=== PATIENT | female | born 1970 | race Caucasian/White ===

== ENCOUNTER 2019-02-24 16:59 | Emergency (ER) | payer OTHER, SELFPAY ==
[2019-02-24 17:18] LABS: Apearance,Urine Clear (Clear); Bilirubin,Urine Negative (Negative); Blood, Urine Negative (Negative); Color,Urine Orange (Yellow); Glucose,Urine (UA) 100 (Negative); Ketones,Urine Negative (Negative); Protein,Urine Trace (Negative); Specific Gravity, Urine 1.005 (1.005-1.030); UTC Leukocyte Esterase,Urine Negative (Negative); Urobilinogen,Urine 1 EU/dl (0.2)
[2019-02-24 17:19] LABS: UTC Nitrate,Urine Positive (Negative)
[2019-02-24 17:40] VITALS: BP 195/65; PULSE 65; RESP 18; TEMP 36.8; O2SAT 100; BMI 33.5
--- NOTE | 2019-02-24 18:19 | HMH.EDUTC ---
[facility] – [place] Disposition Clinical Impression: UTI (urinary tract infection) Qualifiers: Urinary tract infection type: site unspecified Hematuria presence: without hematuria Qualified Code(s): N39.0 - Urinary tract infection, site not specified Disposition: Home, Self-Care Condition on Discharge: Good Instructions: Urinary Tract Infection, DI for Urinary Tract Infection (UTI), Nitrofurantoin Additional Instructions: *Increase fluids. Water not Soda or Tea *Start antibiotic immediately and be sure to take as ordered for the FULL length of time although you should start to see improvement over the next 48 hours *Be SURE to follow up anytime for new or worsening symptoms with your family doctor. AND in 48 hours for urine culture results with your family doctor, if you do not have a doctor then you may call back to the [facility] for urine culture results and further treatment. We do recommend that you choose and establish care with a Primary Care Physician. AND follow up with them in 10-14 days to repeat UA to ensure infection is resolved and blood no longer present *Be sure to let your PCP know that we sent urine cultures from the [facility] so they can follow up to ensure that you area the on the correct antibiotic Call your doctor office and make appointment for 48 hours (2 days from today) to follow up and get the results of your urine culture and further treatment Return if needed Straight to ER if any life threatening symptoms Prescriptions: Nitrofurantoin Monohyd/M-Cryst [Macrobid 100 mg Capsule] 100 mg PO BID 7 Days #14 cap Referrals: Betsy Carmona [Primary Care Provider] - As needed (Follow up in 48 hours for urine culture results) Time of Disposition: 18:30 Medical Decision Making - Byron Inquiry Pt receiving controlled substance: No Byron was queried for this patient: No Vital Signs: 02/24/19 17:40 02/24/19 18:48 Temperature 98.2 F Temperature Source Oral Pulse Rate [Right Apical] 65 Respiratory Rate 18 Blood Pressure [Right Arm] 195/65 H 120/84 Blood Pressure Mean [Right Arm] 108 96 Blood Pressure Source [Right Arm] Automatic Cuff Blood Pressure Position [Right Arm] Sitting 02 Sat by Pulse Oximetry 100 - Lab Data Lab Results 02/24/19 17:12: Urine Color [place], Urine Appearance Clear, Urine pH 5.0, Ur Specific [place] 1.005, Urine Protein Trace, Urine Glucose (UA) 100, Urine Ketones Negative, Urine Blood Negative, Urine Nitrate Positive A, Urine Bilirubin Negative, Urine Urobilinogen 1, Ur Leukocyte Esterase Negative Orders (Tests/Meds): ED MEDICATIONS Discontinued Medications Generic Name Dose Route Start Last Admin Trade Name Penelope PRN Reason Stop Dose Admin Ceftriaxone Sodium 1 gm 02/24/19 18:21 02/24/19 18:32 Rocephin 1gm Vial IM 02/24/19 18:22 1 gm ONCE ONE Administration Protocol Ketorolac Tromethamine 30 mg 02/24/19 18:38 02/24/19 18:47 Toradol 30mg/Ml Vial IM 02/24/19 18:39 30 mg ONCE ONE Administration Lidocaine HCl 0 ml 02/24/19 18:21 02/24/19 18:32 Lidocaine 1% 10ml Mdv IM 02/24/19 18:22 2.1 ml ONCE ONE Administration Nitrofurantoin Macrocrystals 100 mg 02/24/19 18:41 02/24/19 18:47 Macrodantin 100mg Capsule PO 02/24/19 18:42 100 mg ONCE ONE Administration ORDERS Category Date Time Status Urine Culture Stat Micro 02/24/19 17:40 Received [facility] – [place] HPI - General Stated complaint: Possible bladder Infection Time Seen by Provider: 02/24/19 18:19 Mode of Arrival: Ambulatory Source of Information: Patient Limitations: No Limitations Description of Symptoms (Recalled from Triage Doc. by RN): PT C/O POSSIBLE BLADDER INFECTION HEENT Symptoms (Recalled from RN notes): No Resp Symptoms (Recalled from RN notes): No Skin Symptoms (Recalled from RN notes): No MS Symptoms (Recalled from RN notes): No Functional Status (Recalled from RN notes): N/A - History of Present Illness Provider Complaint: Patient states that she has been having feel
--- NOTE | 2019-02-24 18:24 | ED_ITS ---
[facility] [place] Impression: UTI (urinary tract infection) Qualifiers: Urinary tract infection type: site unspecified Hematuria presence: without hematuria Qualified Code(s): N39.0 - Urinary tract infection, site not specified Disposition: Home, Self-Care Condition on Discharge: Good Instructions: Urinary Tract Infection, DI for Urinary Tract Infection (UTI), Nitrofurantoin Additional Instructions: *Increase fluids. Water not Soda or Tea *Start antibiotic immediately and be sure to take as ordered for the FULL length of time although you should start to see improvement over the next 48 hours *Be SURE to follow up anytime for new or worsening symptoms with your family doctor. AND in 48 hours for urine culture results with your family doctor, if you do not have a doctor then you may call back to the [facility] for urine culture results and further treatment. We do recommend that you choose and establish care with a Primary Care Physician. AND follow up with them in 10-14 days to repeat UA to ensure infection is resolved and blood no longer present *Be sure to let your PCP know that we sent urine cultures from the [facility] so they can follow up to ensure that you area the on the correct antibiotic Call your doctor office and make appointment for 48 hours (2 days from today) to follow up and get the results of your urine culture and further treatment Return if needed Straight to ER if any life threatening symptoms Prescriptions: Nitrofurantoin Monohyd/M-Cryst [Macrobid 100 mg Capsule] 100 mg PO BID 7 Days #14 cap Referrals: Betsy Carmona [Primary Care Provider] - As needed (Follow up in 48 hours for urine culture results) Time of Disposition: 18:30 Medical Decision Making - Byron Inquiry Pt receiving controlled substance: No Byron was queried for this patient: No Vital Signs: 02/24/19 17:40 02/24/19 18:48 Temperature 98.2 F Temperature Source Oral Pulse Rate [Right Apical] 65 Respiratory Rate 18 Blood Pressure [Right Arm] 195/65 H 120/84 Blood Pressure Mean [Right Arm] 108 96 Blood Pressure Source [Right Arm] Automatic Cuff Blood Pressure Position [Right Arm] Sitting 02 Sat by Pulse Oximetry 100 - Lab Data Lab Results 02/24/19 17:12: Urine Color [place], Urine Appearance Clear, Urine pH 5.0, Ur Specific [place] 1.005, Urine Protein Trace, Urine Glucose (UA) 100, Urine Ketones Negative, Urine Blood Negative, Urine Nitrate Positive A, Urine Bilirubin Negative, Urine Urobilinogen 1, Ur Leukocyte Esterase Negative Orders (Tests/Meds): ED MEDICATIONS Discontinued Medications Generic Name Dose Route Start Last Admin Trade Name Riazq PRN Reason Stop Dose Admin Ceftriaxone Sodium 1 gm 02/24/19 18:21 02/24/19 18:32 Rocephin 1gm Vial IM 02/24/19 18:22 1 gm ONCE ONE Administration Protocol Ketorolac Tromethamine 30 mg 02/24/19 18:38 02/24/19 18:47 Toradol 30mg/Ml Vial IM 02/24/19 18:39 30 mg ONCE ONE Administration Lidocaine HCl 0 ml 02/24/19 18:21 02/24/19 18:32 Lidocaine 1% 10ml Mdv IM 02/24/19 18:22 2.1 ml ONCE ONE Administration Nitrofurantoin Macrocrystals 100 mg 02/24/19 18:41 02/24/19 18:47 Macrodantin 100mg Capsule PO 02/24/19 18:42 100 mg ONCE ONE Administration ORDER
[2019-02-24 18:48] VITALS: BP 120/84
[2019-02-24 18:52] VITALS: BP 126/66; PULSE 65; RESP 18; TEMP 36.6; O2SAT 100
== END 2019-02-24 18:54 | disposition home or self-care (01) ==
PROVIDERS: Emergency Provider Nurse Practitioner; PCP Family Medicine
DX: N39.0 Urinary tract infection, site not specified (principal)
CPT/HCPCS: 81003; 87086; 96372; 99202

== ENCOUNTER 2020-07-19 18:29 | Emergency (ER) | payer OTHER, MEDICAID, SELFPAY ==
[2020-07-19 18:38] VITALS: BP 125/74; PULSE 76; RESP 20; TEMP 36.7; O2SAT 99; BMI 34.3
--- NOTE | 2020-07-19 18:39 | XR_ITS ---
PROCEDURE: XR CHEST 2V CLINICAL HISTORY: cough COMPARISON: No exams were available for comparison FINDINGS: The cardiomediastinal silhouette and pulmonary vascularity are within normal limits. The lungs are clear without infiltrates, suspicious nodules, or pleural effusions. No acute bony abnormalities. IMPRESSION: No acute findings. Dictated by: Reginaldo Gruber MD 07/19/2020 19:37 Reginaldo Gruber MD in [place] 07/19/2020 19:37
--- NOTE | 2020-07-19 19:15 | HMH.EDUTC ---
[facility] – [place] Disposition Clinical Impression: Acute bronchitis Qualifiers: Bronchitis organism: unspecified organism Qualified Code(s): J20.9 - Acute bronchitis, unspecified Disposition: Home, Self-Care Condition on Discharge: Good Instructions: Acute Bronchitis, DI for Acute Bronchitis Additional Instructions: Drink plenty of fluids. Take tylenol or ibuprofen for pain or fever. Take the medications as directed. Follow up with your regular doctor. GO TO THE ER FOR ANY WORSENING SYMPTOMS Don't start the oral steroids until tomorrow, since you had the shot here today. The cough medication (promethazine dm) will make you drowsy, so don't drive or operate heavy machinery after taking it. Prescriptions: Albuterol Sulfate [Albuterol Sulfate Hfa] 2 puffs IH Q6HP PRN 30 Days #1 hfa.[email or web address] PRN Reason: Shortness Of Breath Transmission Status: Received by [facility] Promethazine/Dextromethorphan [Promethazine-Dm Syrup] 5 ml PO Q6HP PRN #180 syrup PRN Reason: Cough Transmission Status: Received by [facility] methylPREDNISolone [Medrol] 4 mg PO DIRECTED 6 Days #21 tab.ds.pk Transmission Status: Received by [facility] Azithromycin [Z-Jose Manuel 250mg Tab*] 250 mg PO UD DOSE PK #6 tab Transmission Status: Received by [facility] Referrals: Ulices Spears MD [Primary Care Provider] - Forms: Work/School Release Time of Disposition: 19:21 Medical Decision Making - Medical Records Medical records reviewed: No: I reviewed the patient's medical records. - Byron Inquiry Pt receiving controlled substance: No Vital Signs: 07/19/20 18:38 07/19/20 19:46 Temperature 98.1 F 98.1 F Temperature Source Oral Oral Pulse Rate 76 Pulse Rate [Radial] 76 Respiratory Rate 20 20 Blood Pressure 125/74 Blood Pressure [Right Arm] 125/74 Blood Pressure Mean [Right Arm] 91 Blood Pressure Source Automatic Cuff Blood Pressure Source [Right Arm] Automatic Cuff Blood Pressure Position Sitting Blood Pressure Position [Right Arm] Sitting 02 Sat by Pulse Oximetry 99 Oxygen Delivery Method Room Air Room Air - Lab Data Lab results reviewed: Yes: I reviewed the patient's lab results. Orders (Tests/Meds): ED MEDICATIONS Discontinued Medications Generic Name Dose Route Start Last Admin Trade Name Penelope PRN Reason Stop Dose Admin Ceftriaxone Sodium 1 gm 07/19/20 19:18 07/19/20 19:31 Ceftriaxone 1gm Vial IM 07/19/20 19:19 1 gm ONCE ONE Administration Protocol Lidocaine HCl 0 ml 07/19/20 19:18 07/19/20 19:32 Lidocaine 1% 5ml Pf Vial IM 07/19/20 19:19 2.1 ml ONCE ONE Administration Methylprednisolone Sodium Succinate 125 mg 07/19/20 19:18 07/19/20 19:32 Methylprednisolone Sod Succ 125mg Vial IM 07/19/20 19:19 125 mg ONCE ONE Administration - Radiology Data #1 Image(s): Chest Image Reviewed: Yes I reviewed the patient's radiology image, Yes I have reviewed radiologist's interpretation Preliminary Findings: Normal/NAD, No Infiltrates Seen PROCEDURE: XR CHEST 2V CLINICAL HISTORY: cough COMPARISON: No exams were available for comparison FINDINGS: The cardiomediastinal silhouette and pulmonary vascularity are within normal limits. The lungs are clear without infiltrates, suspicious nodules, or pleural effusions. No acute bony abnormalities. IMPRESSION: No acute findings. Dictated by: Reginaldo Gruber MD 07/19/2020 19:37 Reginaldo Gruber MD in [place] 07/19/2020 19:37 [facility] [place] HPI - General Stated complaint: Cough Time Seen by Provider: 07/19/20 19:15 Mode of Arrival: Ambulatory Source of Information: Patient Limitations: No Limitations Description of Symptoms (Recalled from Triage Doc. by RN): POSSIBLE BRONCHITIS. COUGH, CONGESTION. HAS TAKEN KEFLEX AND OMNICEF OVER THE WEEKEND WITH NO RELIEF. SELF TESTED FOR COVID TODAY AND WAS NEGATIVE. STATES SHE GETS TESTED AGAIN TOMORROW AT WORK. HEENT Symptoms (Re
[2020-07-19 19:46] VITALS: BP 125/74; PULSE 76; RESP 20; TEMP 36.7; O2SAT 99
== END 2020-07-19 19:46 | disposition home or self-care (01) ==
PROVIDERS: Emergency Provider Nurse Practitioner Family; PCP Internal Medicine Adolescent Medicine
DX: J20.9 Acute bronchitis, unspecified (principal); F17.210 Nicotine dependence, cigarettes, uncomplicated
CPT/HCPCS: 71046; 96372; 99202

== ENCOUNTER → 2020-07-26 12:45 | Outpatient (CLI) | payer OTHER, MEDICAID, SELFPAY ==
--- NOTE | 2020-07-26 12:53 | XR_ITS ---
PROCEDURE: XR CHEST 2V CLINICAL HISTORY: COUGH COMPARISON: CR XR CHEST 2V from 07/19/2020 FINDINGS: The cardiomediastinal silhouette and pulmonary vascularity are within normal limits. There is increased density in the left lower lobe consistent with pneumonia. There is some minimal blunting of the left CP angle. Calcified nodes are present in the left hilar region. No acute bony abnormalities. IMPRESSION: Left lower lobe pneumonia with possible small effusion Dictated by: Reginaldo Gruber MD 07/26/2020 13:11 Reginaldo Gruber MD in [place] 07/26/2020 13:11
[2020-07-26 13:17] LABS: Adenovirus,PCR Not Detected (NotDetected); Bordetella Pertussis Not Detected (NotDetected); Chlamydophila Pneumoniae, PCR Not Detected (NotDetected); Coronavirus 19, PCR Not Detected (NotDetected); Coronavirus 229E Not Detected (NotDetected); Coronavirus NL63 Not Detected (NotDetected); Coronavirus OC43 Not Detected (NotDetected); Coronovirus HKU1,PCR Not Detected (NotDetected); Human Metapneumovirus Not Detected (NotDetected); Influenza A, PCR Not Detected (NotDetected); Influenza AH1, 2009 Not Detected (NotDetected); Influenza AH1, PCR Not Detected (NotDetected); Influenza AH3,PCR Not Detected (NotDetected); Influenza B, PCR Not Detected (NotDetected); Mycoplasma Pneumoniae, PCR Not Detected (NotDetected); Parainfluenza 1, PCR Not Detected (NotDetected); Parainfluenza 2, PCR Not Detected (NotDetected); Parainfluenza 3, PCR Not Detected (NotDetected); Parainfluenza 4, PCR Not Detected (NotDetected); Respiratory Syncytial Virus Not Detected (NotDetected)
[2020-07-26 15:36] LABS: Rhinovirus/Enterovirus Detected (NotDetected)
== END ==
PROVIDERS: PCP Internal Medicine Adolescent Medicine; Visit Provider Internal Medicine Adolescent Medicine
DX: R05 Cough (principal); B34.8 Other viral infections of unspecified site
CPT/HCPCS: 71046; 87581; 87633; 87798

== ENCOUNTER 2020-11-28 15:54 | Emergency (ER) | payer OTHER, SELFPAY ==
[2020-11-28 16:00] VITALS: BP 110/66; PULSE 81; RESP 18; TEMP 36.8; O2SAT 98; BMI 34.3
[2020-11-28 16:11] LABS: Apearance,Urine Clear (Clear); Color,Urine Yellow (Yellow); PH,Urine 5.5 (5.0-8.5)
[2020-11-28 16:12] LABS: Bilirubin,Urine Negative (Negative); Blood, Urine Trace (Negative); Glucose,Urine (UA) Negative (Negative); Ketones,Urine Negative (Negative); Protein,Urine Negative (Negative); Specific Gravity, Urine >= 1.030 (1.005-1.030); UTC Leukocyte Esterase,Urine Trace (Negative); UTC Nitrate,Urine Negative (Negative); Urobilinogen,Urine 0.2 EU/dl (0.2)
--- NOTE | 2020-11-28 16:20 | PC.NURSE ---
PATIENT SENT TO ER PER KATE SALAS APRN FOR FURTHER EVALUATION OF ABDOMINAL PAIN. REPORT GIVEN TO Daron TEJADA RN AND Lizzette MICHAELS RN
--- NOTE | 2020-11-28 16:21 | HMH.EDUTC ---
[facility] [place] Clinical Impression: Right lower quadrant abdominal pain Disposition: Still a Patient Condition on Discharge: Fair Referrals: Ulices Spears MD [Primary Care Provider] - Time of Disposition: 16:23 Medical Decision Making - Medical Records Medical records reviewed: No: I reviewed the patient's medical records. - Byron Inquiry Pt receiving controlled substance: No - Lab Data Lab results reviewed: Yes: I reviewed the patient's lab results. Lab Results 11/28/20 16:10: Urine Color Yellow, Urine Appearance Clear, Urine pH 5.5, Ur Specific [place] >= 1.030, Urine Protein Negative, Urine Glucose (UA) Negative, Urine Ketones Negative, Urine Blood Trace, Urine Nitrate Negative, Urine Bilirubin Negative, Urine Urobilinogen 0.2, Ur Leukocyte Esterase Trace Orders (Tests/Meds): ORDERS Category Date Time Status Urine Culture Routine Micro 11/28/20 16:11 Ordered Medical Decision Narrative: She was transferred to the ER to r/o appendicitis. [facility] [place] HPI - General Stated complaint: R lower quad pain Time Seen by Provider: 11/28/20 16:21 - History of Present Illness Provider Complaint: She reports that since yesterday she has had right lower quadrant abdominal pain, chilling, no appetite. She still has her appendix. - Related Data Previous Rx's Medication Instructions Recorded Albuterol Sulfate [Albuterol 2 puffs IH Q6HP PRN 30 Days #1 07/19/20 Sulfate Hfa] hfa.aer.ad Azithromycin [Z-Jose Manuel 250mg Tab*] 250 mg PO UD DOSE PK #6 tab 07/19/20 Promethazine/Dextromethorphan 5 ml PO Q6HP PRN #180 syrup 07/19/20 [Promethazine-Dm Syrup] methylPREDNISolone [Medrol] 4 mg PO DIRECTED 6 Days #21 07/19/20 tab.ds.pk Allergies Allergy/AdvReac Type Severity Reaction Status Date / Time No Known Allergies Allergy Verified 02/24/19 18:20 [facility] History - Hepatitis A Screen Attestation statement:: This patient has been screened for Hepatitis A risk factors. I have reviewed the patient's past medical history: Yes - Social History Smoking Status: Current every day smoker Tobacco Type: cigarettes # Packs/Day (cigarettes): 1 Alcohol Intake: never Occupational Status: employed ROS Obtained: Yes All systems reviewed & no additional complaints - Constitutional Constitutional: Denies body ache, Reports chills, Denies fever(s), Reports frequent falls, Reports poor appetite - Eyes Eyes: Denies eye discharge - Gastrointestinal Gastrointestingal: Reports: as per HPI - Genitourinary Female Genitourinary: Denies difficulty voiding, Denies dysuria, Denies urinary frequency, Denies urinary incontinence, Denies urinary hesitancy, Denies urinary urgency - Musculoskeletal Musculoskeletal: Denies back pain - Integumentary/Breasts Skin/Breast: Denies redness, Denies rash, Denies wounds Physical Exam - General General appearance: alert, in no apparent distress - Head Head exam: atraumatic, normocephalic, normal inspection - Eye Eye exam: Present: normal appearance, PERRL, EOMI - ENT ENT exam: Present: normal exam, normal oropharynx, mucous membranes moist, TM's normal bilaterally, normal external ear exam - Neck Neck exam: Present: normal inspection, full ROM, trachea midline. Absent: meningismus, lymphadenopathy - Chest Chest inspection: Present: normal inspection, symmetric chest wall rise. Absent: tenderness - Respiratory Respiratory exam: Present: normal lung sounds bilaterally. Absent: respiratory distress - Cardiovascular Cardiovascular exam: Present: regular rate, normal rhythm. Absent: JVD - Abdominal Exam Abdominal exam: Present: soft, tenderness, guarding, rebound, rigidity, hypoactive bowel sounds, psoas sign, obturator sign, heel tap sign. Absent: distention Abdominal tenderness: Present: RLQ - Extremities Exam Extremities exam: Present: normal inspection, full ROM, normal capillary refill. Absent: calf tenderness - Back Exam Back exam: Present:
[2020-11-28 16:31] VITALS: BP 110/76; PULSE 68; RESP 18; TEMP 36.8; O2SAT 98; BMI 34.3
--- NOTE | 2020-11-28 16:35 | HMH.EDGENADL ---
ED Disposition Clinical Impression: Right lower quadrant abdominal pain Disposition: Home, Self-Care Condition on Discharge: Good Instructions: DI for Acute Abdominal Pain Additional Instructions: If pain is progressing or is not improving over the next 24 hours or if you develop new symptoms such as fever or vomiting, return to the emergency department for reevaluation. You may take ibuprofen or Tylenol for pain. Referrals: Ulices Spears MD [Primary Care Provider] - - Critical Care Critical Care Time: No Attestation: On 11/28/20, the high probability of a clinically significant, sudden or life threatening deterioration of the following system(s) required my full and direct attention, intervention and personal management. The time I documented below is in addition to time spent performing reported procedures but includes the following listed in this critical care notation. Medical Decision Making - Byron Inquiry Pt receiving controlled substance: No Vital Signs: 11/28/20 16:00 11/28/20 16:31 11/28/20 17:43 Temperature 98.3 F 98.3 F 98.2 F Temperature Source Oral Oral Oral Pulse Rate 65 Pulse Rate [Left Brachial] 81 68 Respiratory Rate 18 18 18 Blood Pressure 115/70 Blood Pressure [Left Arm] 110/66 110/76 Blood Pressure Mean [Left Arm] 80 87 Blood Pressure Source Automatic Cuff Blood Pressure Source [Left Arm] Automatic Cuff Automatic Cuff Blood Pressure Position Sitting Blood Pressure Position [Left Arm] Sitting Sitting 02 Sat by Pulse Oximetry 98 98 Oxygen Delivery Method Room Air Room Air Room Air 11/28/20 17:45 Temperature 98 F Temperature Source Oral Pulse Rate 78 Pulse Rate [Left Brachial] Respiratory Rate 16 Blood Pressure 132/74 Blood Pressure [Left Arm] Blood Pressure Mean [Left Arm] Blood Pressure Source Blood Pressure Source [Left Arm] Blood Pressure Position Sitting Blood Pressure Position [Left Arm] 02 Sat by Pulse Oximetry Oxygen Delivery Method Room Air - Lab Data Lab results reviewed: Yes: I reviewed the patient's lab results. Lab Results 11/28/20 16:10: Urine Color Yellow, Urine Appearance Clear, Urine pH 5.5, Ur Specific [place] >= 1.030, Urine Protein Negative, Urine Glucose (UA) Negative, Urine Ketones Negative, Urine Blood Trace, Urine Nitrate Negative, Urine Bilirubin Negative, Urine Urobilinogen 0.2, Ur Leukocyte Esterase Trace 11/28/20 16:20: WBC 11.3 H, RBC 4.78, Hgb 14.3, Hct 46.1, MCV 96.6, MCH 30.0, MCHC 31.1 L, RDW 13.6, Plt Count 326, MPV 8.6, Neut % (Auto) 47.7, Lymph % (Auto) 44.5, [place] % (Auto) 4.1, Eos % (Auto) 2.6, Baso % (Auto) 1.0, Neut # (Auto) 5.4, Lymph # (Auto) 5.0 H, [place] # (Auto) 0.5, Eos # (Auto) 0.3, Baso # (Auto) 0.1 11/28/20 16:20: Sodium 136, Potassium 4.0, Chloride 106, Carbon Dioxide 28, Anion Gap 6.0, BUN 19 H, Creatinine 0.90, Estimated Creat Clear 105, Estimated GFR 66, Est GFR ( Amer) 80, Glucose 115 H, Calcium 10.2, Total Bilirubin 0.2, AST 28, ALT 15, Alkaline Phosphatase 111, Total Protein 8.1, Albumin 4.5, Globulin 3.6 H, Albumin/Globulin Ratio 1.3, Amylase 80, Lipase 144 Result diagrams: 11/28/20 16:20 11/28/20 16:20 Orders (Tests/Meds): ED MEDICATIONS Discontinued Medications Generic Name Dose Route Start Last Admin Trade Name Riazq PRN Reason Stop Dose Admin Sodium Chloride 1,000 mls @ 999 mls/hr 11/28/20 16:45 11/28/20 16:33 Sod Chlor 0.9% 1000ml Bag IV 11/28/20 17:45 999 mls/hr .Q1H1M MANA Administration Iopamidol 75 ml 11/28/20 17:08 11/28/20 17:09 Iopamidol-370 (76%);100ml Bottle IV 11/28/20 17:09 75 ml ONCE ONE Administration Ketorolac Tromethamine 30 mg 11/28/20 16:31 11/28/20 16:33 Ketorolac 30mg/Ml Vial IV 11/28/20 16:32 30 mg ONCE ONE Administration Ondansetron HCl 4 mg 11/28/20 16:31 11/28/20 16:33 Ondansetron 4mg/2ml Vial IV 11/28/20 16:32 4 mg ONCE ONE Administration Sodium Chloride 10 ml 11/28/20 17:08 11/28/20 17:09 Sodium
--- NOTE | 2020-11-28 16:36 | CT_ITS ---
PROCEDURE: CT ABDOMEN PELVIS W CON CLINICAL INDICATION: RLQ pain Right lower quadrant pain with nausea and diarrhea COMPARISON: No exams were available for comparison TECHNIQUE: IV Contrast: 75ML Isovue 370 Oral Contrast None Axial images obtained with sagittal and coronal reformats. All CT scans at the facility use one or more dose reduction, viz: automated exposure control, ma/kV adjustment per patient size (including targeted exams where dose is matched to indication, i.e. head), or iterative reconstruction technique. FINDINGS: LOWER THORAX: No acute finding ABDOMEN & PELVIS: Prior cholecystectomy. Prior gastric sleeve surgery. The liver, adrenal glands, pancreas, and right kidney have an unremarkable appearance. There is some mild scarring of the left kidney in the upper pole. 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 Just lateral to the left kidney there is a rounded soft tissue density measuring 17 mm and could be related to some residual splenic tissue or a splenule. There are few small retroperitoneal lymph nodes. No evidence of appendicitis. There is diffuse colonic diverticulosis but no evidence of diverticulitis. There is a round the fatty area in the left lower quadrant with some minimal peripheral calcification. This area measures 2.9 cm. This may represent an epiploic appendage with partially calcified wall without inflammation. Posttraumatic changes with some fatty necrosis is an additional consideration. A lipoma/dermoid would be an additional consideration. Recommend 3 to six-month follow-up to confirm short term stability as there are no old exams available for comparison Post hysterectomy changes. No acute bony findings. IMPRESSION: 1. No acute finding. 2. Postsurgical changes 3. There is a round I fatty area in the left lower quadrant with some minimal peripheral calcification. This area measures 2.9 cm. This may represent an epiploic appendage with partially calcified wall without inflammation. Posttraumatic changes with some fatty necrosis is an additional consideration. A lipoma/dermoid would be an additional consideration. Recommend 3 to six-month follow-up to confirm short term stability as there are no old exams available for comparison Dictated by: Reginaldo Gruber MD 11/29/2020 06:26 Reginaldo Gruber MD in [place] 11/29/2020 06:26
[2020-11-28 16:47] LABS: Alanine Aminotransferase 15 U/L (12-78); Albumin Level 4.5 g/dl (3.5-5.0); Albumin/Globulin Ratio 1.3 (1.1-1.8); Alkaline Phosphatase 111 U/L (38-126); Amylase 80 U/L (30-110); Aspartate Amino Transferase 28 U/L (14-36); Basophils # 0.1 K/mm3 (0-0.2); Bilirubin,Total 0.2 mg/dl (0.2-1.3); Blood Urea Nitrogen 19 mg/dl (7-17); Calcium 10.2 mg/dl (8.4-10.2); Carbon Dioxide 28 mmol/L (22.0-30.0); Chloride 106 mmol/L (98-107); Creatinine Clearance Estimated 105 mL/min (50-200); Eosinophils # 0.3 K/mm3 (0.0-0.4); Eosinophils % 2.6 % (0.1-12.0); Estimated Glomerular Filt Rate 66 ml/min (>60); GFR (African American) 80 ML/MIN (>60); Globulin 3.6 g/dL (1.3-3.2); Glucose 115 mg/dl (74-100); Hematocrit 46.1 % (37.0-47.0); Hemoglobin 14.3 g/dL (12.2-16.2); Lipase 144 U/L (23-300); Lymphocytes % 44.5 % (10-50); Mean Corpuscular HGB Conc 31.1 g/dL (31.8-35.4); Mean Corpuscular Volume 96.6 fl (81-99); Mean Platelet Volume 8.6 fl (7.4-10.4); Monocytes # 0.5 K/mm3 (0.1-1.0); Monocytes % 4.1 % (1.7-9.3); Neutrophils # 5.4 K/mm3 (1.8-7.8); Neutrophils % 47.7 % (37.0-80.0); Platelet Count 326 K/mm3 (142-424); Red Blood Count 4.78 M/mm3 (4.20-5.40); Red Cell Distribution Width 13.6 % (11.5-17.5); Sodium 136 mmol/L (136-145); Total Protein,Serum 8.1 g/dl (6.3-8.2); White Blood Count 11.3 K/mm3 (4.8-10.8)
[2020-11-28 17:43] VITALS: BP 115/70; PULSE 65; RESP 18; TEMP 36.8; O2SAT 98
[2020-11-28 17:45] VITALS: BP 132/74; PULSE 78; RESP 16; TEMP 36.6; O2SAT 98
== END 2020-11-28 17:46 | disposition home or self-care (01) ==
LOC: UTC 15:58 → ER 16:23
PROVIDERS: Nurse Practitioner Family; Emergency Provider Emergency Medicine; PCP Internal Medicine Adolescent Medicine
DX: R10.31 Right lower quadrant pain (principal); F17.210 Nicotine dependence, cigarettes, uncomplicated
CPT/HCPCS: 74177; 80053; 81003; 82150; 83690; 85025; 87086; 96365; 96375; 99283; J2405; Q9967

== ENCOUNTER 2020-12-20 06:36 | Day surgery (SDC) | payer OTHER, SELFPAY ==
[2020-12-16 14:38] VITALS: BMI 34.3
[2020-12-20 07:12] VITALS: BP 117/72; PULSE 66; RESP 18; TEMP 36.4; O2SAT 99
[2020-12-20 08:00] VITALS: O2SAT 100
--- NOTE | 2020-12-20 08:05 | P.PCN_ITS ---
[facility] Procedure Note Procedure Note:: Colonoscopy Procedure Report: Colonoscopy with cold biopsies and cold snare polypectomy Endoscopist: Michelet Garza II, MD Referring physician: Ulices Spears M.D. Date of Procedure: December 20, 2020 Equipment: Olympus 190 variable stiffness pediatric colonoscope Sedation: MAC sedation Indication: Mrs. Farah is a 50-year-old female who is here for diagnostic colonoscopy secondary to worsening right lower quadrant abdominal pain. The patient did go to the emergency department on November 28, 2020. She had a CAT scan that showed an area in the left lower quadrant that may represent an epiploic appendage versus lipoma. There was some calcification within this lesion. The patient also had diffuse colonic diverticulosis on the CAT scan. The patient has reported some increased gassiness and bloating. She does have bowel irregularity with bowel urgency and frequency. She alternates between grupo rrhea and regular bowel movements. She reports no constipation but does have some incomplete defecation with excessive wiping. The patient reports no rectal bleeding or weight loss. She does state that her paternal grandmother had colon cancer in her 90s. The patient did have a colonoscopy 5 to 6 years ago at which time polyps were identified. Procedure: Prior to the procedure, a history and physical exam was performed, and patient's medications and allergies were reviewed. The risks, benefits and alternatives of the sedation and procedure were discussed with the patient. All questions were answered and informed consent was obtained. The patient was brought to the procedure room. Patient identification and proposed procedure were verified by the physician and the nurse. The patient was placed in a left lateral decubitus position and the scope was passed under direct vision. Throughout the procedure, the patient's blood pressure, pulse, and oxygen saturations were monitored continuously. The colonoscopy was accomplished without difficulty. The patient tolerated the procedure well. Findings: On digital rectal examination there was normal rectal tone. There were no external hemorrhoids. The colonoscope was introduced through the anal canal to the rectum and advanced to the cecum. The ileocecal valve and appendiceal orifice were identified. The scope was advanced a short distance into the ileum which appeared grossly normal. The scope was then withdrawn into the colon. The cecum, ascending and transverse colon and mucosa were grossly normal. Cold biopsies were taken from the right colon to rule out microscopic colitis. There was a single 4 to 5 mm polyp in the descending colon removed via cold snare polypectomy. There were scattered diverticuli throughout the colon but more predominantly in the descending and sigmoid colon (LEFT colon). The rectum itself was normal. Upon retroflexion within the rectum there were grade 1-2 internal hemorrhoids. The preparation was fair throughout with [place] Preparation Score of 7 out of 9. The cecal time was 12 minutes. Impression: 1. Diminutive descending colon polyp 2. Pandiverticulosis 3. Grade 1-2 internal hemorrhoids Plan: I will follow up the polyp histology and recommend repeat surveillance colonoscopy again in 7 to 10 years based upon the pathology. I would encourage dietary measures, bulk fiber supplementation and probiotic therapy. We will also discuss treatment of her visceral sensitivity. I would consider C 13 sucrose breath testing to exclude sucrase isomaltase deficiency.
[2020-12-20 08:10] LABS: Coronavirus 19 IgG Antibody Negative (Negative); Coronavirus 19 IgM Antibody Negative (Negative)
[2020-12-20 08:26] VITALS: BP 127/79; PULSE 70; RESP 16; TEMP 36.4; O2SAT 98
[2020-12-20 08:36] VITALS: BP 119/70; PULSE 59; RESP 16; TEMP 36.4; O2SAT 100
[2020-12-20 08:46] VITALS: BP 138/75; PULSE 63; RESP 18; TEMP 36.4; O2SAT 100
[2020-12-20 09:00] VITALS: BP 142/80; PULSE 65; RESP 16; TEMP 36.4; O2SAT 100
--- NOTE | 2020-12-20 15:12 | HMH.ANESCL ---
[facility] Anesthesia Checklist - Patient Identification Patient Identification: Arm Band - Structural Data Admitted From: Home Planned Operative Procedure/s: Colonoscopy Consent for Planned Operative Procedure(s) Verified: Yes - Airway Assessment C-Spine Mobility Assessed: Yes TMJ Mobility Assessed: Yes - Neurological Assessment Level of Consciousness: Awake Hx Seizures: No Numbness or tingling in extremities: No - Anesthesia Plan Anesthesia Risk discussed: Yes Anesthesia Plan: Verified ASA Class: III Anesthesia Type: MAC [facility] History I have reviewed the patient's past medical history: Yes Medical History: Reports:: Cancer (thyroid, kidney) Denies:: Diabetes Mellitus Type 1, Diabetes Mellitus Type 2, Internal Pacemaker, MRSA, Seizures *Have you ever received a pneumonia vaccine?: Yes *Have you received a flu vaccine this season?: Yes Anesthesia experience/problems:: PONV Other Surgeries: No: Pacemaker Amputation: No Fractures: No - *Social History Last grade of school completed: Advanced degree Smoking Status: Current every day smoker Tobacco Type: cigarettes # Packs/Day (cigarettes): 1 Alcohol Intake: never Substance Use Type: denies use *Occupational Status:: employed Housing: house Household Members: spouse *Travel in the last 8 weeks: None Family Hx:: Unable to obtain
== END 2020-12-20 09:00 | disposition home or self-care (01) ==
LOC: OUTP 06:37
PROVIDERS: PCP Internal Medicine Adolescent Medicine; Visit Provider Internal Medicine Gastroenterology
PROC: 0DJD8ZZ Inspection of Lower Intestinal Tract, Via Natural or Artificial Opening Endoscopic (ICD-10-PCS; CPT 45378; principal; 2020-12-20 07:30)
DX: K63.5 Polyp of colon (principal); K57.30 Diverticulosis of large intestine without perforation or abscess without bleeding; K64.0 First degree hemorrhoids; Z85.850 Personal history of malignant neoplasm of thyroid; Z85.528 Personal history of other malignant neoplasm of kidney; Z72.0 Tobacco use; Z79.899 Other long term (current) drug therapy
CPT/HCPCS: 45385; 86328

== ENCOUNTER → 2021-02-24 16:56 | Outpatient (CLI) | payer OTHER, SELFPAY | PROVIDERS: Visit Provider Internal Medicine Adolescent Medicine | DX: R10.30 Lower abdominal pain, unspecified (principal) | CPT/HCPCS: 87086 ==

== ENCOUNTER 2022-05-11 17:36 | Emergency (ER) | payer OTHER, SELFPAY ==
[2022-05-11 17:50] VITALS: BP 139/74; PULSE 88; RESP 19; TEMP 37.8; O2SAT 98; BMI 33.8
[2022-05-11 18:10] LABS: UTC Strep Screen (Rapid) Negative (Negative)
--- NOTE | 2022-05-11 18:23 | HMH.EDUTC ---
[facility] [place] Clinical Impression: Viral syndrome Disposition: Home, Self-Care Condition on Discharge: Good Instructions: Sore Throat, DI for Fever (Symptom) -- Adult, DI for COVID-19 (Suspected or Confirmed ), Preventing the Spread of Coronavirus Discharge Instructions Additional Instructions: *Monitor Temp, Over the counter Motrin or Tylenol as directed/as needed Tylenol every 4 hours and Motrin every 6 hours (as long as your family doctor has told you that you can take it) for fever or pain. and straight to ER if unable to lower temp less than 101.0 after medication given *Warm salt water gargles may help to soothe the throat *Throat Lozenges *Warm fluids like tea with honey may help to soothe the throat *Sleep elevated *Humidifier/Vaporizer Your throat swab was sent for culture. Those results are typically sent to your primary care. Be sure to follow up in 2-3 days with your family doctor/primary care physician if no improvement so they can review those result and treat if necessary. If you don?t have a primary care doctor, I recommend you get one but in the mean time, you will have to return to a walk in clinic Follow up IMMEDIATELY for new or worsening symptoms or no Noticeable improvement over the next 48-72 hours. 911 for difficulty breathing or swallowing You were tested for today for COVID19 your test result should be back in the next 24-48 hours, you may check your results on the [facility] My Health Portal Make sure to take your Vitamins Vit. C Vit D and Zinc if you can take them Referrals: Ulices Spears MD [Primary Care Provider] - As needed Forms: Work/School Release Medical Decision Making - Byron Inquiry Pt receiving controlled substance: No Byron was queried for this patient: No Vital Signs: 05/11/22 17:50 05/11/22 18:45 Temperature 100.0 F H 100.0 F H Temperature Source Oral Pulse Rate 88 Pulse Rate [Right Brachial] 88 Respiratory Rate 19 19 Blood Pressure 139/74 Blood Pressure [Right Arm] 139/74 Blood Pressure Mean [Right Arm] 95 Blood Pressure Source [Right Arm] Automatic Cuff Blood Pressure Position [Right Arm] Sitting 02 Sat by Pulse Oximetry 98 Oxygen Delivery Method Room Air - Lab Data Lab results reviewed: Yes: I reviewed the patient's lab results. Lab Results 05/11/22 18:00: Strep Scn Rapid Clinic Negative 05/11/22 18:28: Influenza Type A Ag Negative, Influenza Type B Ag Negative Orders (Tests/Meds): ORDERS Category Date Time Status Covid-19 Nasal PCR ([facility]) Routine Lab 05/11/22 18:00 Received Strep Screen Confirmation Stat Micro 05/11/22 18:00 Received [facility] UTC HPI - General Stated complaint: fever Time Seen by Provider: 05/11/22 18:24 Mode of Arrival: Ambulatory Source of Information: Patient Limitations: No Limitations Description of Symptoms (Recalled from Triage Doc. by RN): PATIENT C/O FEVER, HEADACHE, SORE THROAT, AND BODY ACHES SINCE YESTERDAY HEENT Symptoms (Recalled from RN notes): Yes Resp Symptoms (Recalled from RN notes): No Skin Symptoms (Recalled from RN notes): No MS Symptoms (Recalled from RN notes): No Functional Status (Recalled from RN notes): WNL - History of Present Illness Provider Complaint: Patient states that she started feeling bad last night states that she has been having headache, body aches, chills, and sore throat States that today she has continued to feel worse States that her grandson had strep and grand daughter had flu and not sure is she has been exposed to COVID - Related Data Home Medications Medication Instructions Recorded Confirmed Atorvastatin Calcium [Lipitor 20mg 20 mg PO HS 11/28/20 12/16/20 Tab] Levothyroxine Sodium [Euthyrox] 125 mcg PO DAILY 11/28/20 12/16/20 Sertraline HCl [Zoloft] 100 mg PO DAILY 11/28/20 12/16/20 Allergies Allergy/AdvReac Type Severity Reaction Status Date / Time No Known Allergies Allergy Verified 12/20/20 07:10 - Worker's Comp Is this a Worker's Co
[2022-05-11 18:40] LABS: UTC Influenza A Antigen Negative (Negative); UTC Influenza B Antigen Negative (Negative)
[2022-05-11 18:45] VITALS: BP 139/74; PULSE 88; RESP 19; TEMP 37.8; O2SAT 98
== END 2022-05-11 18:53 | disposition home or self-care (01) ==
PROVIDERS: Emergency Provider Nurse Practitioner; PCP Internal Medicine Adolescent Medicine
DX: B34.9 Viral infection, unspecified (principal); Z20.822 Contact with and (suspected) exposure to COVID-19; F17.210 Nicotine dependence, cigarettes, uncomplicated
CPT/HCPCS: 87804; 87880; 99212; C9803; G0463; U0003; U0005

== ENCOUNTER 2023-03-31 22:07 | Emergency (ER) | payer OTHER, SELFPAY ==
[2023-03-31 22:08] VITALS: BMI 34.3
--- NOTE | 2023-03-31 22:09 | ECG_ITS ---
APPROVED REPORT Exam: Resting ECG HR:56 bpm ECG Measurements Heart Rate [address] 145 P 67 QRSd 98 QRS 66 QT 389 T 49 QTc 380 Conclusion SINUS BRADYCARDIA BORDERLINE ECG UNCONFIRMED REPORT Electronically signed by : Ulices Spears MD 04/02/2023 08:17:58
--- NOTE | 2023-03-31 22:09 | XR_ITS ---
PROCEDURE INFORMATION: Exam: XR Chest Exam date and time: 03/31/2023 10:08 PM Age: 52 years old Clinical indication: Pain; Chest pressure; Additional info: Left chest pain TECHNIQUE: Imaging protocol: Radiologic exam of the chest. Views: 2 views. COMPARISON: CR XR CHEST 2V 07/26/2020 12:57 PM FINDINGS: Lungs: No focal consolidation. Pleural spaces: No pleural effusion. No pneumothorax. Heart/Mediastinum: Several calcified intrathoracic lymph nodes especially in the left hilar region. Bones/joints: No acute osseous findings. Organs: Cholecystectomy. IMPRESSION: No focal consolidation.
[2023-03-31 22:10] VITALS: BP 134/84; PULSE 71; RESP 16; TEMP 36.6; O2SAT 98; BMI 34.3
--- NOTE | 2023-03-31 22:17 | PC.NURSE ---
Pt gone to RAD via wheelchair
--- NOTE | 2023-03-31 22:20 | PC.NURSE ---
Pt returned from RAD
[2023-03-31 22:22] LABS: Basophils # 0.1 K/mm3 (0-0.2); Basophils % 0.9 % (0.1-2.0); Eosinophils # 0.5 K/mm3 (0.0-0.4); Eosinophils % 3.7 % (0.1-12.0); Hematocrit 42.8 % (37.0-47.0); Hemoglobin 13.2 g/dL (12.2-16.2); Lymphocytes # 6.3 K/mm3 (0.7-4.5); Lymphocytes % 45.9 % (10-50); Mean Corpuscular HGB Conc 30.7 g/dL (31.8-35.4); Mean Corpuscular Hemoglobin 29.1 pg (27.0-31.2); Mean Corpuscular Volume 94.9 fl (81-99); Mean Platelet Volume 8.7 fl (7.4-10.4); Monocytes # 0.6 K/mm3 (0.1-1.0); Monocytes % 4.4 % (1.7-9.3); Neutrophils # 6.2 K/mm3 (1.8-7.8); Neutrophils % 45.1 % (37.0-80.0); Platelet Count 306 K/mm3 (142-424); Red Blood Count 4.51 M/mm3 (4.20-5.40); Red Cell Distribution Width 13.7 % (11.5-17.5); White Blood Count 13.7 K/mm3 (4.8-10.8)
--- NOTE | 2023-03-31 22:24 | HMH.EDCP ---
Discharge Plan Disposition Patient Disposition: Home, Self-Care Prescriptions Prescriptions: New isosorbide mononitrate 30 mg tablet extended release 24 hr 30 mg PO DAILY Qty: 10 0RF No Action atorvastatin 20 MG tablet 20 mg PO HS sertraline 100 MG tablet 100 mg PO DAILY levothyroxine 125 MCG tablet 125 mcg PO DAILY Patient Comments: TAKE 1 TABLET BY MOUTH ONCE DAILY FOR 90 DAYS tizanidine 4 mg tablet 4 mg PO DIRECTED Patient Comments: TAKE 1 TABLET BY MOUTH THREE TIMES DAILY NEEDED FOR PAIN Clinical Impressions Clinical Impression: Chest pain, Angina decubitus Instructions Patient Instructions: DI for Angina Discharge ED Provider: Shan (ED)Tio Chest Pain HPI General Chief Complaint: Chest Pain Stated Complaint: chest pain Time Seen by Provider: 03/31/23 22:10 Mode of Arrival: Ambulatory Source of Information: Patient, Spouse and Medical Record Limitations: No Limitations Description of Symptoms (Recalled from ER Triage Doc. by RN): pt states she woke up this am with chest pain that has been intermittant through out the day. pt states she has pressure in the L side of her chest, light headedness, and numbness and tingling down her L arm. History of Present Illness HPI narrative: new onset of pressure lt chest pain with rad to lt upper ext - doses smoke and elevated lipids - MD complaint: chest pain indicative of cardiac Onset (ago): hour(s) Duration: intermittent Activity at onset: during rest Pain location: left chest Severity: moderate Quality: other (pressure) Pain radiation: LUE Risk Factors for CAD: Hypercholesterolemia, Family Hx of CAD and Smoking Treatments prior to or on arrival for Cardiac Chest Pain: none ISAEL Score for Non-Stemi Age of Patient: 50-59 years old Heart Rate: 50-69 bpm Systolic Blood Pressure: 100-119 mmHg Serum Creatinine: 0.80-1.19 mg/dl CHF [place] Class: I-No CHF Other Risk Factors: None Non-Stemi Risk Score: 94 Risk Stratification: 1-108 = Low Risk Related Data On Oral Contraceptives: No Home Medications Medication Instructions Recorded Confirmed atorvastatin 20 mg tablet 20 mg PO HS Cholesterol 11/28/20 12/16/20 levothyroxine 125 mcg tablet 125 mcg PO DAILY THYROID 11/28/20 12/16/20 sertraline 100 mg tablet 100 mg PO DAILY Depression 11/28/20 12/16/20 tizanidine 4 mg tablet 4 mg PO DIRECTED muscle pain 03/31/23 03/31/23 Previous Rx's Medication Instructions Recorded isosorbide mononitrate 30 mg 30 mg PO DAILY #10 tabs 04/01/23 tablet,extended release 24 hr Allergies Allergy/AdvReac Type Severity Reaction Status Date / Time No Known Allergies Allergy Verified 03/31/23 22:13 [facility] Disclaimer: The information contained in this section may have been updated after the patient was seen, as this information can be updated by other users. Medical History (Updated 04/01/23 @ 01:36 by Tio Torrez (SIN)MD) Cancer of kidney Hyperlipidemia PFO (patent foramen ovale) Thyroid cancer Surgical History (Updated 03/31/23 @ 22:15 by Ana Alvarenga RN) History of cholecystectomy History of hysterectomy Hx of thyroidectomy Social History Smoking Status: Current every day smoker tobacco type: cigarettes packs per day: 1 second hand exposure: Yes alcohol intake: never substance use type: denies use current occupational status: other Travel in the last 8 weeks: None household members: spouse housing: house current occupation: RN caffeine: Yes ROS Obtained: Yes All systems reviewed & no additional complaints except as documented Physical Exam General General appearance: alert Head Head exam: normocephalic Eye Eye exam: Present PERRL and EOMI ENT ENT exam: Present mucous membranes moist Neck Neck exam: Present trachea midline Respiratory Respiratory exam: Present normal lung sounds bilaterally; Absen
[2023-03-31 22:25] LABS: Chloride 104 mmol/L (98-107); Potassium 3.5 mmoL/L (3.5-5.1); Sodium 141 mmol/L (136-145)
[2023-03-31 22:27] LABS: Alanine Aminotransferase 18 U/L (12-78); Aspartate Amino Transferase 29 U/L (14-36); Blood Urea Nitrogen 17 mg/dl (7-17); Creatinine Clearance Estimated 92 mL/min (50-200); Estimated Glomerular Filt Rate 58 ml/min (>60); GFR (African American) 70 ML/MIN (>60)
[2023-03-31 22:28] LABS: Alkaline Phosphatase 110 U/L (38-126); Anion Gap 11.5 mEq/L (5-15); Calcium 9.2 mg/dl (8.4-10.2); Carbon Dioxide 29 mmol/L (22.0-30.0); Glucose 96 mg/dl (74-100); Magnesium 1.6 mg/dl (1.6-2.3); Total Protein,Serum 7.4 g/dl (6.3-8.2)
--- NOTE | 2023-03-31 22:30 | PC.NURSE ---
per pt, nitroglycerin was effective
[2023-03-31 22:31] VITALS: BP 119/68; PULSE 66; O2SAT 99
[2023-03-31 22:41] LABS: Bilirubin,Indirect 0.3 mg/dL (0.0-0.9)
[2023-03-31 22:45] LABS: Bilirubin,Total 0.3 mg/dl (0.2-1.3); Bilirubin,Unconjugated 0.3 mg/dL (0.0-1.1)
[2023-03-31 22:51] LABS: Troponin I < 0.01 ng/ml (0.00-0.034)
[2023-03-31 22:59] LABS: T4 (Thyroxine) 11.8 ug/dl (5.53-11.0)
[2023-03-31 23:00] VITALS: BP 113/70; PULSE 48; O2SAT 99
--- NOTE | 2023-03-31 23:08 | PC.NURSE ---
pt updated on her cardiac enzymes and given updated wait time to complete the 2nd troponin level. Her is going to wait in the car. Pt also given a warm blanket at this time
[2023-03-31 23:12] LABS: Thyroid Stimulating Hormone 1.95 uIU/mL (0.465-4.68)
[2023-03-31 23:30] VITALS: BP 121/71; PULSE 58; O2SAT 99
[2023-04-01 00:30] VITALS: BP 126/74; PULSE 65; O2SAT 98
--- NOTE | 2023-04-01 00:51 | PC.NURSE ---
Second trop drawn and sent to lab
[2023-04-01 01:00] VITALS: BP 114/75; PULSE 68; O2SAT 99
[2023-04-01 01:12] LABS: Troponin I < 0.01 ng/ml (0.00-0.034)
[2023-04-01 01:49] VITALS: BP 113/75; PULSE 60; RESP 18; TEMP 36.7; O2SAT 98
== END 2023-04-01 01:52 | disposition home or self-care (01) ==
PROVIDERS: Emergency Provider Emergency Medicine; PCP Internal Medicine Adolescent Medicine
DX: I20.9 Angina pectoris, unspecified (principal); R55 Syncope and collapse; R20.0 Anesthesia of skin; R20.2 Paresthesia of skin; M79.602 Pain in left arm; E78.5 Hyperlipidemia, unspecified; F17.210 Nicotine dependence, cigarettes, uncomplicated; Z85.528 Personal history of other malignant neoplasm of kidney; Z85.850 Personal history of malignant neoplasm of thyroid
CPT/HCPCS: 71046; 80048; 80076; 83735; 84436; 84443; 84484; 85025; 93005; 96360; 99285

== ENCOUNTER 2025-04-13 06:02 | Day surgery (SDC) | payer BC, SELFPAY ==
[2025-04-10 11:44] VITALS: BMI 36.8
[2025-04-13 06:23] VITALS: BP 123/72; PULSE 58; RESP 16; TEMP 36.2; O2SAT 99
[2025-04-13] MEDS: LACTATED RINGERS 1000ML 1,000 ML 50 ML IV (06:35)
--- NOTE | 2025-04-13 07:14 | P.PNANES_ITS ---
[facility] Disclaimer: The information contained in this section may have been updated after the patient was seen, as this information can be updated by other users. Medical History Anxiety Hypothyroidism Hyperlipidemia PFO (patent foramen ovale) Thyroid cancer Cancer of kidney Surgical History History of colonoscopy History of partial nephrectomy Hx of thyroidectomy History of hysterectomy History of cholecystectomy Family History Other No significant family history Social History Smoking Status: Current every day smoker tobacco type: cigarettes packs per day: 1 second hand exposure: Yes alcohol intake: never substance use type: denies use current occupational status: employed Travel in the last 8 weeks?: None household members: spouse housing: house current occupation: RN caffeine: Yes Have you lived/traveled outside [place] in past 30 days?: No Contact w/someone who lives/traveled outside US past 30 days?: No Exposure to someone with infectious disease in past 14 days?: No Do you have a fever (greater than 100.4 F or 38 C)?: No Have you tested positive for COVID-19?: No Exposed to someone with COVID-19 in past 14 days?: No Do you have a sore throat?: No Do you have a cough?: No Do you have any weakness?: No Are you experiencing any nausea/vomitting?: No Do you have any diarrhea?: No Are you experiencing any unusual bleeding?: No Do you have any muscle aches/pain?: No Do you have any abdominal pain?: No Are you experiencing loss of taste or smell?: No [facility] Anesthesia Checklist Patient Identification Patient Identification: Verbal (Name & ) Structural Data Admitted From: Home Planned Operative Procedure/s: colonoscopy NPO Status Verified Time NPO: 00:00 Airway Assessment Mallampati Score:: Class II C-Spine Mobility Assessed: Yes TMJ Mobility Assessed: Yes Dentition: Good Dentition Neurological Assessment Level of Consciousness: Awake, Alert and Appropriate Anesthesia Plan Anesthesia Risk discussed: Yes Anesthesia Plan: Verified ASA Class: II Anesthesia Type: MAC
--- NOTE | 2025-04-13 07:23 | EXP.HP ---
History of Present Illness *Admission Date: 04/13/25 *Reason for visit:: Personal history of adenomatous colon polyps *History of present illness: Mrs. Farah is a 54-year-old female who is here for follow-up screening colonoscopy secondary to a personal history of adenomatous colon polyp. The examination is deemed medically necessary for surveillance colonoscopy. The patient has been seen, interviewed and examined prior to the procedure by both myself and the anesthesia provider. [facility] Disclaimer: The information contained in this section may have been updated after the patient was seen, as this information can be updated by other users. Medical History (Updated 04/13/25 @ 07:24 by Michelet Garza II, MD) Anxiety Hypothyroidism Hyperlipidemia PFO (patent foramen ovale) Thyroid cancer Cancer of kidney Surgical History History of colonoscopy History of partial nephrectomy Hx of thyroidectomy History of hysterectomy History of cholecystectomy Family History Other No significant family history Social History Smoking Status: Current every day smoker tobacco type: cigarettes packs per day: 1 second hand exposure: Yes alcohol intake: never substance use type: denies use current occupational status: employed Travel in the last 8 weeks?: None household members: spouse housing: house current occupation: RN caffeine: Yes Have you lived/traveled outside US in past 30 days?: No Contact w/someone who lives/traveled outside US past 30 days?: No Exposure to someone with infectious disease in past 14 days?: No Do you have a fever (greater than 100.4 F or 38 C)?: No Have you tested positive for COVID-19?: No Exposed to someone with COVID-19 in past 14 days?: No Do you have a sore throat?: No Do you have a cough?: No Do you have any weakness?: No Are you experiencing any nausea/vomitting?: No Do you have any diarrhea?: No Are you experiencing any unusual bleeding?: No Do you have any muscle aches/pain?: No Do you have any abdominal pain?: No Are you experiencing loss of taste or smell?: No Other Medical History Have you received the Flu Vaccine for this season: Yes Have you received the Pneumonia Vaccine: Yes Review of Systems Review of Systems Review of systems (narrative): Negative *Cardiovascular Comments: Negative *Gastrointestinal Comments: Negative *Genitourinary Comments: Negative *Musculoskeletal Comments: Negative *Neurologic Comments: Negative Meds Home Medications and Allergies Home Medications ?Medication ?Instructions ?Recorded ?Confirmed ?Type atorvastatin 20 mg tablet 20 mg PO HS Cholesterol 11/28/20 04/10/25 History sertraline 100 mg tablet 100 mg PO DAILY Depression 11/28/20 04/10/25 History tizanidine 4 mg tablet 4 mg PO DIRECTED muscle pain 03/31/23 04/10/25 History levothyroxine 150 mcg tablet 137 mcg PO DAILY 11/22/23 04/10/25 History lorazepam 0.5 mg tablet 0.5 mg PO BID PRN Anxiety 11/22/23 04/10/25 History sodium,potassium,mag sulfates 17.5 See Rx Instructions PO .COMPLEX 12/16/24 04/10/25 Rx gram-3.13 gram-1.6 gram oral soln #354 mL (Suprep Bowel Prep Kit) New Prescriptions to Start Prescriptions: Allergies Allergy/AdvReac Type Severity Reaction Status Date / Time No Known Allergies Allergy Verified 04/10/25 11:42 Exam Data for Last 24 hours Vital signs and Labs for Last 24 Hours: Temp Pulse Resp BP Pulse Ox O2 Del Method 97.2 F L 58 L 16 123/72 99 Room Air 04/13/25 06:23 04/13/25 06:23 04/13/25 06:23 04/13/25 06:23 04/13/25 06:23 04/13/25 06:23 I & O for Last 24 hours: Intake & Output 04/10/25 04/11/25 04/12/25 04/13/25 23:59 23:59 23:59 23:59 Weight 215 lb *Routine HEENT Exam Head: Present normocephalic Eye: Present EOMI and PERRL ENT: Present mucous membranes moist *Routine Neck Exam Neck: Present supple *Routine Respiratory Exam Respiratory: Present CTA bilaterally *Routine Cardiovascular Exam Cardiovascular: Present RRR *Routine Abdominal Exam Abdominal: Present soft and normoactive bowel sounds; Absent tenderness *Routine Rectal Exam Rectal:: deferred *Routine Genitalia Exam Genitalia:: deferred *Routine Extremities Exam Extremities: Absent cyanosis, clubbing or edema *Routine Skin Exam Skin: Present warm; Absent rash *Routine Neurological Exam Neurological: Present alert and oriented X3 Assessment and Plan *Assessment and plan (1) Personal history of adenomatous and serrated colon polyps: Status: Acute Category: Medical Code(s): Z86.0101 - Personal history of adenomatous and serrated colon polyps Plan A/P: 1. Personal history of adenomatous colon polyp is the preprocedural diagnosis. The patient will be anesthetized/sedated using MAC sedation. The patient has been seen and examined. Cardiac and lung assessment prior to the examination is stable. Proceed with planned surveillance colonoscopy.
--- NOTE | 2025-04-13 07:31 | HMH.PROCNOTE ---
[facility] Procedure Note Date: 04/13/25 Time: 07:44 Procedure Note:: Colonoscopy Procedure Report: Colonoscopy Endoscopist: Michelet Garza II, MD Referring physician: Ulices Spears M.D. Date of Procedure: April 13, 2025 Equipment: Olympus 190 variable stiffness pediatric colonoscope Sedation: MAC sedation Indication: Mrs. Farah is a 54-year-old female who is here for follow-up screening/surveillance colonoscopy. The patient did have a colonoscopy in November 2020 and had a single polyp (tubular adenoma) removed. She does have a long history of IBS with alternating diarrhea and constipation. She does get a lot of cramps, gassiness and bloating. She reports no rectal bleeding. She has had some unintentional weight loss of 10 pounds in the last couple of months. Her paternal grandmother had colon cancer at a later age. Procedure: Prior to the procedure, a history and physical exam was performed, and patient's medications and allergies were reviewed. The risks, benefits and alternatives of the sedation and procedure were discussed with the patient. All questions were answered and informed consent was obtained. The patient was brought to the procedure room. Patient identification and proposed procedure were verified by the physician and the nurse. The patient was placed in a left lateral decubitus position and the scope was passed under direct vision. Throughout the procedure, the patient's blood pressure, pulse, and oxygen saturations were monitored continuously. The colonoscopy was accomplished without difficulty. The patient tolerated the procedure well. Findings: On digital rectal examination there was normal rectal tone. There were no external hemorrhoids. The colonoscope was introduced through the anal canal to the rectum and advanced to the cecum. The ileocecal valve and appendiceal orifice were identified. The scope was advanced a short distance into the ileum which appeared grossly normal. The scope was then withdrawn into the colon. There were scattered diverticuli throughout the colon but more predominantly in the descending and sigmoid colon (LEFT colon). The remainder of the colonic mucosa was normal. The rectum itself was normal. Upon retroflexion within the rectum there were grade 1 internal hemorrhoids. The preparation was excellent throughout with [place] Preparation Score of 9. The cecal time was 11 minutes. Impression: 1. Pandiverticulosis Plan: The patient will not require surveillance colonoscopy again for 10 years by ACS guidelines. I would encourage dietary measures and psyllium fiber supplementation on a maintenance basis.
[2025-04-13 07:47] VITALS: BP 91/51; PULSE 75; RESP 14; TEMP 36.1; O2SAT 99
[2025-04-13 07:57] VITALS: BP 118/68; PULSE 63; RESP 16; TEMP 36.1; O2SAT 100
[2025-04-13 08:07] VITALS: BP 121/69; PULSE 61; RESP 17; TEMP 36.1; O2SAT 100
[2025-04-13 08:17] VITALS: BP 147/85; PULSE 59; RESP 17; TEMP 36.1; O2SAT 100
== END 2025-04-13 08:38 | disposition home or self-care (01) ==
PROVIDERS: PCP Internal Medicine Adolescent Medicine; Visit Provider Internal Medicine Gastroenterology
PROC: 0DJD8ZZ Inspection of Lower Intestinal Tract, Via Natural or Artificial Opening Endoscopic (ICD-10-PCS; CPT 45378; principal; 2025-04-13 07:30)
DX: Z12.11 Encounter for screening for malignant neoplasm of colon (principal); Z86.0101 Personal history of adenomatous and serrated colon polyps; K58.2 Mixed irritable bowel syndrome; R63.4 Abnormal weight loss; Z68.36 Body mass index [BMI] 36.0-36.9, adult; F41.9 Anxiety disorder, unspecified; E78.5 Hyperlipidemia, unspecified; Q21.12 Patent foramen ovale; E89.0 Postprocedural hypothyroidism; Z85.850 Personal history of malignant neoplasm of thyroid; Z85.528 Personal history of other malignant neoplasm of kidney; Z90.49 Acquired absence of other specified parts of digestive tract; F17.210 Nicotine dependence, cigarettes, uncomplicated; Z79.890 Hormone replacement therapy; Z79.899 Other long term (current) drug therapy; K57.90 Diverticulosis of intestine, part unspecified, without perforation or abscess without bleeding; Z80.0 Family history of malignant neoplasm of digestive organs
CPT/HCPCS: 45378; J2003; J2704; J7120